=== PATIENT | male | born 1995 | race American Indian/Alaskan Native ===

== ENCOUNTER 2019-07-16 03:53 | Emergency (ER) | payer SELFPAY ==
[2019-07-16] MEDS ORDERED: ACETAMINOPHEN 325 MG TAB PO ONE (04:10)
[2019-07-16] MEDS ORDERED: ACETAMINOPHEN 325 MG TAB ONE ×2 (04:12→04:13)
[2019-07-16 04:17] VITALS: BP 121/77
--- NOTE | 2019-07-16 04:53 | XRay Report ---
Right hand, 3 views INDICATION: Pain following injury today FINDINGS: The hand is intact with no fracture or foreign body seen. Overlying bandage is seen over th e dorsal surface. Signer Name: Juan Nj MD Signed: 07/16/2019 4:49 AM Workstation Name: [id number]
[2019-07-16] MEDS ORDERED: HYDROcodone/ACETAMINOPHEN 5-325 MG TAB ONE (05:55)
[2019-07-16] MEDS ORDERED: HYDROcodone/ACETAMINOPHEN 5-325 MG TAB PO ONE (05:56)
[2019-07-16] MEDS ORDERED: LIDOCAINE (2%) 20 MG/1 ML VIAL 20 ML MDV INFILTRATI ONE ×2 (06:17)
== END 2019-07-16 07:30 | disposition left against medical advice (07) ==
LOC: ED 03:53
DX: S61.411A Laceration without foreign body of right hand, initial encounter (principal); Z53.21 Procedure and treatment not carried out due to patient leaving prior to being seen by health care provider; X58.XXXA Exposure to other specified factors, initial encounter; Y93.89 Activity, other specified; Y92.89 Other specified places as the place of occurrence of the external cause; Y99.8 Other external cause status